=== PATIENT | male | born 1975 | race Caucasian/White ===

== ENCOUNTER 2019-07-03 11:51 | Emergency (ER) | payer SELFPAY ==
--- NOTE | 2019-07-03 12:51 | ER Document Report ---
ED Medical Screen (RME) - General Chief Complaint: Abdominal Pain Stated Complaint: RIGHT SIDE ABDOMINAL PAIN Time Seen by Provider: 07/03/19 12:48 Mode of Arrival: Ambulatory Information source: Patient Notes: 43-year-old male presented to ED for complaint of right lower quadrant abdominal pain since yesterday. Nausea vomiting yesterday. Denies fevers but has had chills. States he has had 3 inguinal hernia surgeries. Patient is alert oriented respirations regular and unlabored speaking in full sentences. Can you lift the right leg up that her states sitting down or lift in his right leg hurts. I have greeted and performed a rapid initial assessment of this patient. A comprehensive ED assessment and evaluation of the patient, analysis of test results and completion of medical decision making process will be conducted by an additional ED providers. TRAVEL OUTSIDE OF THE [place] IN LAST 30 DAYS: No - Related Data Allergies/Adverse Reactions: No Known Allergies Allergy (Verified 07/03/19 11:52) Past Medical History - Social History Frequency of alcohol use: None Drug Abuse: None Physical Exam - Vital signs Vitals: Temp Pulse Resp BP Pulse Ox 98.7 F 72 16 145/102 H 99 07/03/19 11:55 07/03/19 11:55 07/03/19 11:55 07/03/19 11:55 07/03/19 11:55 Course - Vital Signs Vital signs: Temp Pulse Resp BP Pulse Ox 98.7 F 72 16 145/102 H 99 07/03/19 11:55 07/03/19 11:55 07/03/19 11:55 07/03/19 11:55 07/03/19 11:55
[2019-07-03] MEDS ORDERED: ONDANSETRON 4 MG TAB.RAPDIS PO ONE (12:53)
[2019-07-03] MEDS ORDERED: OXYCODONE-ACETAMINOPHEN 5-325 MG TABLET PO ONE (12:53)
[2019-07-03 13:54] LABS: ABSOLUTE BASOPHILS # (AUTO) 0.1 10^3/uL (0.0-0.2); ABSOLUTE EOSINOPHILS # (AUTO) 0.2 10^3/uL (0.0-0.6); ABSOLUTE MONOCYTES (AUTO) 0.6 10^3/uL (0.1-1.4); ABSOLUTE NEUT (AUTO) 5.6 10^3/uL (1.7-8.2); BASOPHILS % (AUTO) 1.1 % (0-2); EOSINOPHILS % (AUTO) 2.5 % (0-6); HEMOGLOBIN 14.5 g/dL (13.5-17.0); LYMPHOCYTES % (AUTO) 23.7 % (13-45); MEAN CORPUSCULAR HEMOGLOBIN 29.2 pg (27.0-33.4); MEAN CORPUSCULAR HGB CONC 34.5 g/dL (32.0-36.0); MEAN CORPUSCULAR VOLUME 85 fl (80-97); MONOCYTES % (AUTO) 6.9 % (3-13); PLATELET COUNT 195 10^3/uL (150-450); RED BLOOD COUNT 4.97 10^6/uL (4.35-5.55); RED CELL DISTRIBUTION WIDTH 13.3 % (11.5-14.0); SEGMENTED NEUTROPHILS % (AUTO) 65.8 % (42-78); TOTAL CELLS COUNTED % (AUTO) 100 %; WHITE BLOOD COUNT 8.6 10^3/uL (4.0-10.5)
[2019-07-03 14:12] LABS: ALBUMIN 4.7 g/dL (3.5-5.0); ALKALINE PHOSPHATASE 65 U/L (38-126); ANION GAP 11 (5-19); APPEARANCE,URINE CLEAR; ASPARTATE AMINO TRANSFERASE 15 U/L (17-59); BILIRUBIN,TOTAL 0.6 mg/dL (0.2-1.3); BILIRUBIN,URINE NEGATIVE (NEGATIVE); BLOOD UREA NITROGEN 16 mg/dL (7-20); CARBON DIOXIDE 28 mmol/L (22-30); CHLORIDE 103 mmol/L (98-107); COLOR,URINE YELLOW; GLUCOSE 115 mg/dL (75-110); GLUCOSE, URINE NEGATIVE (NEGATIVE); KETONES,URINE TRACE mg/dL (NEGATIVE); LEUKOCYTE ESTERASE,URINE NEGATIVE (NEGATIVE); NITRITE,URINE NEGATIVE (NEGATIVE); POTASSIUM 4.1 mmol/L (3.6-5.0); PROTEIN,URINE NEGATIVE (NEGATIVE); TOTAL PROTEIN 7.3 g/dL (6.3-8.2); URINE SPECIFIC GRAVITY 1.017; UROBILINOGEN,URINE NEGATIVE mg/dL (<2.0)
--- NOTE | 2019-07-03 16:03 | RADIOLOGY REPORT (SQ) ---
EXAM DESCRIPTION: CT ABD/PELVIS WITH IV ONLY COMPLETED DATE/TIME: 07/03/2019 3:42 pm REASON FOR STUDY: rlq abdominal pain COMPARISON: None. TECHNIQUE: CT scan of the abdomen and pelvis performed using helical scanning technique with dynamic intravenous contrast injection. No oral contrast. Images reviewed with lung, soft tissue, and bone w indows. Reconstructed coronal and sagittal MPR images reviewed. Delayed images for evaluation of the urinary system also acquired. All images stored on PACS. All CT scanners at this facility use dose modulation, iterative reconstruction, and/or weight based d osing when appropriate to reduce radiation dose to as low as reasonably achievable (ALARA). [facility]: Dose Right [facility]: CareDose [facility]: Dose Right [facility]: Teradose 4D [facility]: Intexys CONTRAST TYPE AND DOSE: contrast/concentration: Isovue 350.00 mg/ml; Total Contrast Delivered: 93.0 ml; Total Saline Delivered: 71.0 ml RENAL FUNCTION: None required. The patient is less than 50 years old. RADIATION DOSE: CT Rad equipment meets quality standard of care and radiation dose reduction techniq ues were employed. CTDIvol: 5.2 - 6.8 mGy. DLP: 1104 mGy-cm.. LIMITATIONS: None. FINDINGS: LOWER CHEST: No significant findings. LIVER: Normal size. No enhancing masses. No dilated ducts. SPLEEN: Normal size. No focal lesions. PANCREAS: No masses identified. No significant calcifications. No adjacent inflammation or peripancre atic fluid collections. Pancreatic duct not dilated. GALLBLADDER: No calcified stones. No inflammatory changes to suggest cholecystitis. ADRENAL GLANDS: No significant masses. RIGHT KIDNEY AND URETER: No cysts identified. No solid masses identified. No calcified stones. No hyd ronephrosis or hydroureter. LEFT KIDNEY AND URETER: No cysts identified. No solid masses identified. No calcified stones. No hydr onephrosis or hydroureter. AORTA AND VESSELS: No aneurysm. No dissection. Renal arteries, SMA, celiac without significant stenos is. RETROPERITONEUM: No bulky retroperitoneal adenopathy. BOWEL AND PERITONEAL CAVITY: No obstruction or inflammatory changes. No free fluid. APPENDIX: Normal. PELVIS: Trace fluid in the left lower quadrant -pelvis, nonspecific. Unremarkable bladder. ABDOMINAL WALL: Prior right inguinal hernia repair. BONES: No acute findings. OTHER: No other significant finding. IMPRESSION: Trace fluid in the left lower quadrant -pelvis, nonspecific. Otherwise no acute finding s. TECHNICAL DOCUMENTATION: JOB ID: [id number] Quality ID # [id number]: Final reports with documentation of one or more dose reduction techniques (e.g., Au tomated exposure control, adjustment of the mA and/or kV according to patient size, use of iterative reconstruction technique) 2010 [employer]- All Rights Reserved Reading location - IP/workstation name: [email or web address]
--- NOTE | 2019-07-03 16:11 | ER Document Report ---
ED GI/ - General Chief Complaint: Abdominal Pain Stated Complaint: RIGHT SIDE ABDOMINAL PAIN Time Seen by Provider: 07/03/19 12:48 Primary Care Provider: [facility] [Provider Group] - Follow up as needed Mode of Arrival: Ambulatory Notes: Patient is a 43-year-old male who presents to the emergency department with a chief complaint of abdominal pain. Patient states that yesterday morning around 1130 he developed right lower quadrant pain. Patient states this has been constant over the past 24 hours. Patient reports nausea with 4-5 episodes of vomiting. Patient states that eating makes the pain worse. Patient reports his last bowel movement was 2 days ago and normal. Patient denies blood in the stool or vomitus. Patient denies diarrhea and diarrhea. Patient denies fever but does report chills. Patient does report a history of 3 inguinal hernia surgeries. Patient denies a bulge in this area. Patient reports any heavy lifting or injury. Patient states he has been incarcerated for the past few weeks. TRAVEL OUTSIDE OF THE [place] IN LAST 30 DAYS: No - Related Data Allergies/Adverse Reactions: No Known Allergies Allergy (Verified 07/03/19 11:52) Past Medical History - General Information source: Patient - Social History Smoking Status: Current Every Day Smoker Frequency of alcohol use: None Drug Abuse: None Lives with: Spouse/Significant other Family History: None Patient has suicidal ideation: No Patient has homicidal ideation: No - Past Medical History Cardiac Medical History: Reports: None Pulmonary Medical History: Reports: None EENT Medical History: Reports: None Neurological Medical History: Reports: None Endocrine Medical History: Reports: None Renal/ Medical History: Reports: None Malignancy Medical History: Reports None GI Medical History: Reports: None Musculoskeletal Medical History: Reports None Skin Medical History: Reports None Psychiatric Medical History: Reports: None Traumatic Medical History: Reports: None Infectious Medical History: Reports: None Past Surgical History: Reports: Hx Herniorrhaphy Review of Systems - Review of Systems Constitutional: See HPI EENT: No symptoms reported Cardiovascular: No symptoms reported Respiratory: No symptoms reported Genitourinary: See HPI Male Genitourinary: No symptoms reported Musculoskeletal: No symptoms reported Skin: No symptoms reported Hematologic/Lymphatic: No symptoms reported Neurological/Psychological: No symptoms reported Physical Exam - Vital signs Vitals: Temp Pulse Resp BP Pulse Ox 98.7 F 72 16 145/102 H 99 07/03/19 11:55 07/03/19 11:55 07/03/19 11:55 07/03/19 11:55 07/03/19 11:55 Interpretation: Hypertensive - Notes Notes: GENERAL: Well-appearing, well-nourished and in no acute distress. HEAD: Atraumatic, normocephalic. EYES: Pupils equal round and reactive to light, extraocular movements intact, sclera anicteric, conjunctiva are normal. ENT: Nares patent, oropharynx clear without exudates. Moist mucous membranes. NECK: Normal range of motion, supple without lymphadenopathy or JVD. LUNGS: Breath sounds clear to auscultation bilaterally and equal. No wheezes rales or rhonchi. HEART: Regular rate and rhythm without murmurs, rubs or gallops. ABDOMEN: Soft, RLQ reproducible tenderness with palpation - no tenderness noted elsewhere, normoactive bowel sounds. No guarding, no rebound. No masses appreciated. BACK: No cervical, thoracic, lumbar midline tenderness. No saddle anesthesia, normal distal neurovascular exam. GENITOURINARY: Deferred. EXTREMITIES: Normal range of motion, no pitting or edema. No clubbing or cyanosis. NEUROLOGICAL: Cranial nerves II through XII grossly intact. Normal speech, normal gait. PSYCH: Normal mood, normal affect. SKIN: Warm, Dry, normal turgor, no rashes or lesions noted. Course - Re-evaluation Re-evalutation: 07/03/19 17:13 Upon reevaluation patient is resting comfortably in no acute distress. Patient continues to have the right lower quadrant pain. I did evaluate the inguinal areas which do have old healing scars bilaterally. Patient reports he has had 3 inguinal hernia repairs, with mesh placement, with the last one being in 2017. Patient reports he has had no issues with the left inguinal hernia but over the past year he has noted the hernia on the right side bulging out intermittently but that he has able to easily push it back into place. I did assess the patient's inguinal area in the lying and standing position. I did not palpate an obvious bulge or hernia. Inguinal exam is negative. There was a trace amount of fluid in the left lower quadrant/pelvis region noted in the CT scan. I did consult with Dr. Burleson regarding the patient's benign lab results to include a normal white blood cell count, no alteration in the electrolytes, normal urine exam and normal physical examination. Patient is not tachycardic, hypotensive, or febrile. I did discuss the results with the patient. Patient placed on strict return precautions. 07/03/19 17:48 I did discuss strict return precautions with the patient and family member. Patient states that his pain has subsided. Patient is in no acute distress at this time is nontoxic-appearing. - Vital Signs Vital signs: Temp Pulse Resp BP Pulse Ox 98.2 F 86 18 118/67 100 07/03/19 16:48 07/03/19 16:48 07/03/19 16:48 07/03/19 16:48 07/03/19 16:48 - Laboratory Result Diagrams: 07/03/19 13:16 07/03/19 13:16 Laboratory results interpreted by me: 07/03/19 07/03/19 13:16 13:16 Glucose 115 H AST 15 L Urine Ketones TRACE H 07/03/19 16:10 Patient's lab work is unremarkable without a leukocytosis, anemia, alteration in electrolytes, alteration in his liver function or urinalysis. Laboratory 07/03/19 07/03/19 07/03/19 13:16 13:16 13:16 WBC 8.6 RBC 4.97 Hgb 14.5 Hct 42.0 MCV 85 MCH 29.2 MCHC 34.5 RDW 13.3 Plt Count 195 Lymph % (Auto) 23.7 [place] % (Auto) 6.9 Eos % (Auto) 2.5 Baso % (Auto) 1.1 Absolute Neuts (auto) 5.6 Absolute Lymphs (auto) 2.0 Absolute Monos (auto) 0.6 Absolute Eos (auto) 0.2 Absolute Basos (auto) 0.1 Seg Neutrophils % 65.8 Sodium 141.9 Potassium 4.1 Chloride 103 Carbon Dioxide 28 Anion Gap 11 BUN 16 Creatinine 0.90 Est GFR ( Amer) > 60 Est GFR (MDRD) Non-Af > 60 Glucose 115 H Calcium 10.0 Total Bilirubin 0.6 Direct Bilirubin 0.0 Neonat Total Bilirubin Not Reportable Neonat Direct Bilirubin Not Reportable Neonat Indirect Bili Not Reportable AST 15 L ALT 15 Alkaline Phosphatase 65 Total Protein 7.3 Albumin 4.7 Lipase 41.5 Urine Color YELLOW Urine Appearance CLEAR Urine pH 5.0 Ur Specific [place] 1.017 Urine Protein NEGATIVE Urine Glucose (UA) NEGATIVE Urine Ketones TRACE H Urine Blood NEGATIVE Urine Nitrite NEGATIVE Urine Bilirubin NEGATIVE Urine Urobilinogen NEGATIVE Ur Leukocyte Esterase NEGATIVE Urine WBC (Auto) 0 Urine Mucus (Auto) OCC Urine Ascorbic Acid NEGATIVE - Diagnostic Test Radiology reviewed: Reports reviewed Radiology results interpreted by me: 07/03/19 16:10 Abdomen/Pelvis CT 07/03/19 12:52 IMPRESSION: Trace fluid in the left lower quadrant -pelvis, nonspecific. Otherwise no acute findings. Discharge - Discharge Clinical Impression: Abdominal pain Qualifiers: Abdominal location: right lower quadrant Qualified Code(s): R10.31 - Right lower quadrant pain Condition: Stable Disposition: HOME, SELF-CARE Additional Instructions: Today you were seen the emergency department for abdominal pain. Your lab work did not show an elevated white count, alteration in your electrolytes, alterati on in your liver function, or a urinary tract infection. We did obtain a CAT scan of the abdomen which was negative for any acute abnormality such as an acute appendicitis, acute gallbladder problem or any other organ issue. You did have a small amount of fluid in the left lower quadrant/pelvic region. I did not appreciate or see, palpate any obvious hernias in the inguinal area. You do need to follow-up with surgery as you have reported that the hernia on the right side will intermittently bulge out. If at any point this causes extreme pain or you are unable to reduce the hernia please return to the emergency department as this is a medical emergency. Please monitor your symptoms over the next 24 to 48 hours and return for fever, vomiting, if your abdomen becomes swollen or distended or if you have any other concerns. Abdominal Pain There are many causes of abdominal pain. Pain can mean a serious problem requiring surgery (such as appendicitis). It can also be an innocent problem that goes away on its own (such as a viral infection). Often, time must pass to determine the cause of pain. The physician does not feel that hospitalization is necessary, at present. Things may change within the next 24 hours. Call the doctor or come back for re- examination if any problems occur, such as: (1) Pain that becomes more severe, steady, or becomes concentrated in one specific area. Also, pain that is more severe with movement or coughing. (2) Vomiting that persists or becomes more frequent. (3) Blood in the vomitus, urine, or bowel movements. Blood in the stool may have a tarry or black appearance. (4) Shaking chills or fever greater than 100 degrees F. (5) The abdomen becomes more distended or swollen. (6) Bowel movements cease. (7) Failure to improve as expected. Referrals: [facility] [Provider Group] - Follow up as needed
[2019-07-03 16:59] VITALS: BP 118/67
[2019-07-03] MEDS ORDERED: ONDANSETRON ODT 4 MG TAB (6 TAB/ER DISP) PO PRN (17:23)
[2019-07-03 18:06] LABS: URINE AMPHETAMINES SCREEN NEGATIVE; URINE BARBITURATES SCREEN NEGATIVE; URINE BENZODIAZEPINES SCREEN NEGATIVE; URINE COCAINE SCREEN NEGATIVE; URINE MARIJUANA (THC) SCREEN NEGATIVE; URINE METHADONE SCREEN NEGATIVE; URINE PHENCYCLIDINE SCREEN NEGATIVE
== END 2019-07-03 17:58 | disposition home or self-care (01) ==
LOC: ER 11:51
DX: R10.31 Right lower quadrant pain (principal); R11.2 Nausea with vomiting, unspecified; F17.200 Nicotine dependence, unspecified, uncomplicated
CPT/HCPCS: 36415; 83690; 85025; 80053; 81001; 80307; 74177; S0119